=== PATIENT | female | born 1985 | race Two or more races ===

== ENCOUNTER 2025-02-22 09:45 | Inpatient (IN) | payer OTHER ==
[~2025-02-22] VITALS: Ht 167.6 cm; Wt 62.1 kg
[2025-02-22] MEDS ORDERED: ADDERALL 15 MG15 MG PO (10:55)
[2025-02-22] MEDS ORDERED: CLARITIN10 M1 PO (10:56)
[2025-02-22] MEDS ORDERED: SIMETHICONE125 M1 (10:56)
[2025-02-22] MEDS ORDERED: PEPCID AC20 MG PO (10:56)
[2025-02-22 11:00] VITALS: BP 135/90
[2025-02-22 11:14] LABS: MEAN CELL VOLUME 89.4 fL (80.00-100.00); MEAN CORPUSCULAR HEMOGLOBIN 31.3 pg (27.00-32.0); PLATELET COUNT 316 K/uL (150-450); RED BLOOD COUNT 4.14 M/uL (4.00-6.00); RED CELL DISTRIBUTION WIDTH 13.1 % (11.5-14.5)
[2025-02-22 11:33] LABS: INR 1.01; PARTIAL THROMBOPLASTIN TIME 29.9 SECONDS (22.0-34.0)
[2025-02-22 11:37] LABS: ALKALINE PHOSPHATASE 73 U/L (50-136); ALT/SGPT 31 U/L (12-78); ANION GAP 7 (10.0-20.0); AST/SGOT 18 U/L (15-37); BILIRUBIN TOTAL 0.43 mg/dL (0.3-1.2); BLOOD UREA NITROGEN 9 mg/dL (7-18); BUN CREA RATIO 16 (7.0-25.0); CALCIUM 9.5 mg/dL (8.5-10.1); CARBON DIOXIDE 33 mEq/L (21-32); CHLORIDE 105 mmol/L (98-107); CREATININE SERUM 0.57 mg/dL (0.55-1.02); GFR 118.08; GLOBULINA 3.2 G/DL (2.4-3.5); GLUCOSE FASTING 84 mg/dL (65-100); OSMOLALITY SERUM 279 MOSM/KG (275-295); POTASSIUM 4.12 mEq/L (3.5-5.1); SODIUM 141 mmol/L (136-145); TOTAL PROTEIN 7.2 gm/dL (6.4-8.2)
[2025-02-22 11:39] LABS: HCG QUANTITATIVE < 1 mUI/mL (1-3)
[2025-02-22 12:53] LABS: RH POSITIVE
[2025-02-27] MEDS ORDERED: POVIDONE-IODINE 118 ML BOTT TOP ONE (07:44)
[2025-02-27] MEDS ORDERED: METRONIDAZOLE/SODIUM CHLORIDE 500 MG/100 ML PIGGYBACK IV ONE (07:44)
[2025-02-27] MEDS ORDERED: CEFAZOLIN SODIUM 1,000 MG VIAL ONE (07:45)
[2025-02-27] MEDS ORDERED: MORPHINE SULFATE 4 MG/ML VIAL IV ONE (14:50)
[2025-02-27] MEDS ORDERED: KETOROLAC TROMETHAMINE 30 MG VIAL IV SCH (15:29)
[2025-02-27] MEDS ORDERED: KETOROLAC TROMETHAMINE 30 MG VIAL ONE (15:58)
[2025-02-27] MEDS ORDERED: GABAPENTIN 300 MG CAPSULE PO SCH (17:00)
[2025-02-27 17:02] VITALS: BP 125/82
[2025-02-27] MEDS ORDERED: ACETAMINOPHEN 500 MG GEL..CAP PO SCH (18:00)
[2025-02-28 00:04] VITALS: BP 116/71
[2025-02-28 05:00] VITALS: BP 117/75
[2025-02-28 06:19] LABS: HEMATOCRIT 32.3 % (36.0-45.00); HEMOGLOBIN 11.1 g/dL (12.0-15.00); MEAN CELL VOLUME 90.4 fL (80.00-100.00); MEAN CORPUSCULAR HEMOGLOBIN 31.1 pg (27.00-32.0); MEAN CORPUSCULAR HGB CONC 34.4 g/dl (32.0-36.0); PLATELET COUNT 231 K/uL (150-450); RED BLOOD COUNT 3.57 M/uL (4.00-6.00); RED CELL DISTRIBUTION WIDTH 12.8 % (11.5-14.5)
[2025-02-28 08:28] VITALS: BP 115/79
== END 2025-02-28 09:20 | disposition home or self-care (01) | DRG 743 ==
LOC: O/R 02-27 06:20 → SURG 02-27 08:50 → OB/GYN 02-27 13:32 → SURG 02-27 15:30 → OB/GYN 02-28 09:20
PROVIDERS: ADMIT Student in an Organized Health Care Education/Training Program; ATTEND Student in an Organized Health Care Education/Training Program
PROC: 0DBP4ZZ Excision of Rectum, Percutaneous Endoscopic Approach (ICD-10-PCS; 2025-02-27)
PROC: 0DBN4ZZ Excision of Sigmoid Colon, Percutaneous Endoscopic Approach (ICD-10-PCS; 2025-02-27)
PROC: 0UBF4ZZ Excision of Cul-de-sac, Percutaneous Endoscopic Approach (ICD-10-PCS; 2025-02-27)
PROC: 0UT94ZZ Resection of Uterus, Percutaneous Endoscopic Approach (ICD-10-PCS; 2025-02-27)
PROC: 0UT74ZZ Resection of Bilateral Fallopian Tubes, Percutaneous Endoscopic Approach (ICD-10-PCS; 2025-02-27)
PROC: 0DNW4ZZ Release Peritoneum, Percutaneous Endoscopic Approach (ICD-10-PCS; 2025-02-27)
PROC: 0TN74ZZ Release Left Ureter, Percutaneous Endoscopic Approach (ICD-10-PCS; 2025-02-27)
PROC: 0TJB8ZZ Inspection of Bladder, Via Natural or Artificial Opening Endoscopic (ICD-10-PCS; 2025-02-27)
PROC: 0UB44ZZ Excision of Uterine Supporting Structure, Percutaneous Endoscopic Approach (ICD-10-PCS; principal; 2025-02-27 08:50)
DX: N72 Inflammatory disease of cervix uteri (principal); N93.9 Abnormal uterine and vaginal bleeding, unspecified; N80.399 Endometriosis of the pelvic peritoneum, other specified sites, unspecified depth; N80.3C2 Endometriosis of the left uterosacral ligament, unspecified depth; N80.329 Endometriosis of the posterior cul-de-sac, unspecified depth; N80.519 Endometriosis of the rectum, unspecified depth; N80.529 Endometriosis of the sigmoid colon, unspecified depth

== ENCOUNTER 2025-02-22 15:31 | Outpatient (CLI) | payer OTHER ==
[~2025-02-22 15:31] MED LIST: ADDERALL 15 MG15 MG PO; CLARITIN10 M1 PO; PEPCID AC20 MG PO; SIMETHICONE125 M1
== END 2025-02-22 15:34 | disposition home or self-care (01) ==
LOC: RAD 15:31
DX: Z01.818 Encounter for other preprocedural examination (principal)